=== PATIENT | female | born 1935 | race Caucasian/White ===

== ENCOUNTER 2017-12-02 08:50 | Day surgery (SDC) | payer OTHER ==
--- NOTE | 2017-11-27 15:46 | EKG ---
Test Date: 2017-11-27 Test Time: 15:15:01 Hardness Tester: LENNY MEASUREMENT RESULTS: Intervals: Rate: 54 WA: 168 QRSD: 92 QT: 436 QTc: 413 [place]: P: -8 WA: 168 QRS: -1 T: 30 INTERPRETIVE STATEMENTS: Sinus bradycardia with premature atrial complexes Nonspecific ST and T wave abnormality Abnormal ECG Compared to ECG 06/07/2006 17:55:23 Atrial premature complex(es) now present ST (T wave) deviation now present Sinus rhythm no longer present Electronically Signed On 11-27-17 15:45:58 CDT by Jos Reed
[2017-11-27 15:52] LABS: Absolute Lymphocytes (CBC) 3.4 K/uL (0.7-4.9); Absolute Monocytes 0.5 K/uL (0.1-1.3); Absolute Neutrophil 4.9 K/uL (1.8-8.0); Eosinophils % 2.8 % (0-4.4); Hematocrit 40.4 % (36.0-45.0); Lymphocytes % 37.2 % (15.3-44.8); MCH 29.8 pg (27.0-35.0); MCV 91.3 fL (80-100); MPV 9.3 fL (7.6-11.3); Monocytes % 5.4 % (3.3-12.3); RBC Red Blood Cell Count 4.43 M/uL (3.86-4.86)
--- NOTE | 2017-11-27 16:05 | RAD REPORT ---
EXAM DESCRIPTION: RAD - Chest Pa And Lat (2 Views) - 11/27/2017 3:29 pm CLINICAL HISTORY: Preop chest, pending cholecystectomy COMPARISON: None. TECHNIQUE: PA and lateral views of the chest were obtained. FINDINGS: The lungs are fibrotic. Prominent pericardial fat pads are present. No focal infiltrate, m ass or failure finding. A few small granulomatous nodules are present in the lung frazier. Heart siz e is normal and central vasculature is within normal limits. No pleural effusion or pneumothorax see n. No acute bony finding noted. No aortic abnormality. IMPRESSION: Fibrotic lung frazier and small granulomas. No suspicious cardiopulmonary finding.
[2017-11-27 16:06] LABS: Potassium 4.4 mEq/L (3.6-5.0)
[2017-11-27 16:11] LABS: Bilirubin Direct 0.1 mg/dL (0-0.2); Bilirubin Total 0.5 mg/dL (0.3-1.2); Protein, Total 7.5 g/dL (6.0-8.3)
[~2017-12-02 08:50] MED LIST: CEFAZOLIN/SWI 1gm 1 GM/10 ML SYR IVP SCH; CEFOXITIN/SWI 1gm 1 GM/10 ML SYR IVP SCH
[2017-12-02] MEDS ORDERED: BUPIVACAINE 0.5% Inj,MDV 50 mL VIAL ONE (09:03)
[2017-12-02] MEDS ORDERED: CEFOXITIN/SWI 1gm 1 GM/10 ML SYR ONE (09:34)
[2017-12-02] MEDS ORDERED: Ringers Lactate 1,000 ML IV ONE (09:34)
[2017-12-02] MEDS ORDERED: PROPOFOL 200 MG/20 ML VIAL IV ONE (09:39)
[2017-12-02] MEDS ORDERED: FENTANYL CITR 100 MCG/2 ML ONE (09:39)
[2017-12-02] MEDS ORDERED: ROCURONIUM 50 MG/5 ML VIAL IV ONE (09:40)
[2017-12-02] MEDS ORDERED: EPHEDRINE SULF 50 MG/5 ML SYR ONE (10:23)
[2017-12-02] MEDS ORDERED: NS 0.9% VIAL 10 ML ONE (10:24)
[2017-12-02] MEDS ORDERED: NEOSTIGMINE 1 MG/ML -5 ML SYRINGE ONE (10:32)
[2017-12-02] MEDS ORDERED: GLYCOPYRROLATE 0.2 MG/ML SYR ONE ×2 (10:32→12:20)
[2017-12-02] MEDS: MEPERIDINE HCL 25 MG/0.5 ML ONE ×2 (11:13→11:25)
--- NOTE | 2017-12-02 11:21 | OP ---
Date of Procedure: 12/02/2017 Surgeon: Enmanuel Huber MD Metal Dealer: JULIO Ross Preoperative Diagnosis: Symptomatic cholelithiasis. Postoperative Diagnosis: Symptomatic cholelithiasis. Procedure: Laparoscopic cholecystectomy. Estimated Blood Loss: Minimal. Specimen: Gallbladder. Findings: As above. Anesthesia: General. Complications: None. Disposition: The patient tolerated the procedure in stable condition and taken to the Recovery in go od general condition. Procedure In Detail: The patient was brought to the OR and placed in supine position. General anest hesia was begun. The patient was prepped and draped in usual sterile fashion. Marcaine 0.5% was inf iltrated locally. A 15-blade was used to make a 1 cm supraumbilical midline incision. Subcutaneous tissue was divided. Fascia was identified and divided. A #1 Vicryl stay suture was placed. Periton eal cavity was entered with blunt dissection. A 12-mm trocar was placed into the peritoneal cavity u nder direct vision. Pneumoperitoneum was established. Then, three 5-mm trocars placed under direct vision; 1 in the epigastrium just to the right of midline and 2 in the right subcostal region. Lapar oscopy revealed chronic inflammation of the gallbladder. Fundus retracted superiorly. Infundibulum identified and retracted inferolaterally. Cystic duct and cystic artery were clearly identified with blunt dissection. Clips placed. Both structures were divided. Cautery was used to remove the gall bladder from the liver bed. Bleeding in the liver bed was controlled with cautery. The gallbladder was retrieved through the umbilicus via an EndoCatch bag. Right upper quadrant was examined. No barbara dence of bleeding or bile leakage appreciated. Subsequently, all trocars were removed under direct v ision. Stay sutures were tied to each other across the fascial defect. Subcutaneous wounds were irr igated. Bleeding controlled with cautery. A 3-0 chromic used for subcutaneous tissue and mary alice us ed to close skin. Sterile dressing was applied. The patient was awakened and taken to Recovery in g ood general condition. Discharge Note: The patient will go to Day Surgery and home when stable. Disposition: Home. Condition: Stable. Discharge Instructions: Resume home medications and diet. Activity as tolerated. No heavy lifting. Remove outer dressing in 2 days. Shower. Keep wound clean and dry. Follow up in my office in a mary beth toth. Call for appointment. Tylenol No. 3 one tablet p.o. q.4 p.r.n. pain. KADIE/MARY ANN Voice ID: [id number] Report ID: [id number]
[2017-12-02] MEDS ORDERED: MEPERIDINE HCL 25 MG/0.5 ML ONE (11:49)
[2017-12-02] MEDS ORDERED: ONDANSETRON 4 MG/2 ML VIAL ONE (12:18)
[2017-12-02] MEDS ORDERED: SUCCINYLCHOLINE 20 MG/ML (10 ML) IV ONE (12:49)
== END 2017-12-02 13:40 | disposition home or self-care (01) ==
LOC: OR 08:50
PROVIDERS: ATTEND Surgery
PROC: 0FT44ZZ Resection of Gallbladder, Percutaneous Endoscopic Approach (ICD-10-PCS; principal; 2017-12-02 10:00)
DX: K80.20 Calculus of gallbladder without cholecystitis without obstruction (principal); I10 Essential (primary) hypertension; Z88.2 Allergy status to sulfonamides; Z80.3 Family history of malignant neoplasm of breast; Z83.3 Family history of diabetes mellitus
CPT/HCPCS: 36415; 47562; 71046; 80048; 80076; 82150; 85025; 88304; 93005; J0330; J2175 ×2; J2405; J2710; J3010

== ENCOUNTER 2021-12-19 14:52 | Observation (INO) | payer OTHER ==
--- OUTSIDE RECORDS SUMMARY | 2021-12-19 16:38 | XMS REPORT | Continuity of Care Document ---
:1935 Author Organization [facility] t Address [address] [place] [address] Care Team Providers Name Role Phone [place] Attending Clinician Unavailable Jasvir CARY, A Attending Clinician JASVIR, Natehn Attending Clinician Unavailable Only, Test Attending Clinician Unavailable Doctor Unassigned, Name Attending Clinician Unavailable Pob, Lab Main Attending Clinician Unavailable Jasvir CARY, A Admitting Clinician Nathen LUND Admitting Clinician Unavailable Payers Payer Name Policy Type Policy Number Effective Date Expiration Date S ource Problems Condition Condition Condition Status Onset Resolution Last Treating Co mments Source Name Details Category Date Date Treatment Clinician Date Obesity Obesity Disease Active 2015-07 Univers (BMI (BMI 1-30 ity of 30-39.9) 30-39.9) 00:00: [address] Allergies, Adverse Reactions, Alerts Allergy Allergy Status Severity Reaction(s) Onset Inactive Treating Comm ents Source Name Type Date Date Clinician NO KNOWN Drug Active Univers ALLERGIE Class ity of S [facility] Social History Social Habit Start Date Stop Date Quantity Comments Source Sex Assigned At Universit y of [facility] Exposure to Not sure [facility] SARS-CoV-2 [facility] (event) Branch Tobacco use and 2020-02-03 2020-02-03 Never used Universit y of exposure 00:00:00 00:00:00 [facility] Alcohol intake 2020-02-03 2020-02-03 Current University 00:00:00 00:00:00 non-drinker of [facility] alcohol Branch (finding) Smoking Status Start Date Stop Date Source Never smoker [facility] Medications Ordered Filled Start Stop Current Ordering Indication Dosage Frequency Signature Comments Components Source Medication Medication Date Date Medication? Clinician (SIG) Name Name nebivolol Yes 10mg Take 10 mg Un cory (BYSTOLIC) 8-05 by mouth ity o f 10 mg 19:38: daily. [place] tablet 51 Medical Branch simvastatin 2020-0 Yes 20mg Take 20 mg Univers (ZOCOR) 20 8-05 by mouth ity o f mg tablet 19:38: at [place] 51 bedtime. Medical Branch amlodipine- 2020-0 Yes 1{tbl} Take 1 Tab Univers valsartan 8-05 by mouth ity of (EXFORGE) 19:38: daily. [place] 5-160 mg 51 Medical per tablet Branch allopurinol 2020-0 Yes 150mg Take 150 U nivers (ZYLOPRIM) 8-05 mg by ity of 300 mg 19:38: mouth [place] tablet 51 daily. Medical Branch ASPIRIN LOW 2020-0 Yes 81mg Take 81 mg Univers DOSE ORAL 8-05 by mouth ity of 19:38: daily. [place] 51 Medical Branch CLEMASTINE 2020-0 Yes 1{tbl} Take 1 Uni vers FUMARATE 8-05 tablet by ity of (ANTIHISTAM 19:38: [place] INE 12HR 51 needed. Medical ORAL) Branch metoprolol 2020-0 Yes 50mg Take 50 mg U nivers succinate 8-05 by mouth ity of XL (TOPROL 19:38: daily. [place] XL) 50 mg 51 Medical 24 hr Branch tablet valsartan 2020-0 Yes 80mg Take 80 mg Un cory 80 mg 8-05 by mouth 2 ity of tablet 19:38: (two) [place] 51 times Medical daily. Branch rivaroxaban 2020-0 Yes 15mg Take 15 mg Univers (XARELTO) 8-05 by mouth 2 ity of 15 mg 19:38: (two) [place] tablet 51 times Medical daily. Branch lactated 2020-0 Yes 1000mL at 75 Univer s ringers IV 8-05 mL/hr, ity of infusion 18:15: 1,000 [place], [place] 1[place]000 [place] 00 IV Medical Infusion, Branch CONTINUOUS , Starting Sat02/03/20 at 1315, Until Discontinu ed, Routine, PACU eye block 2020-0 Yes PRN, Univers syringe 11 8-05 Starting ity o f mL 17:34: 02/03/20 [place] 00 at 1234, Medical Until Branch Discontinu ed, Intra-op mydriatic 2020-0 2020- No .5mL 0.5 mL, Univ ers #5 8-05 08-05 Left Eye, ity of ophthalmic 16:15: 15:14 ONCE, 1 Aleksandr as solution 00 :00 dose, Wed Medica l 0.5 mL 02/03/20 at Branch syringe 1115, Routine, DSU Pre-op EPINEPHrine 2020-0 Yes PRN, Univer s 1:1,000 (1 02-02 Starting ity o f mg/mL) 15:32: 02/03/20 [place] (ADRENALIN) 00 at 1032, Medi wero injection Until Branch Discontinu ed, Routine, Intra-op lactated 2020-0 2020- No 1000mL at 20 [facility] rs ringers IV 02-02 08-05 mL/hr, ity of infusion 15:15: 15:13 1,000 mL, Aleksandr as 1,000 mL 00 :00 IV Medical Infusion, Branch ONCE, 1 dose, Sat02/03/20 at 1015, Routine, DSU Pre-op neomycin-po 2020-0 Yes PRN, Univer s lymyxin-dex 02-02 Starting ity of amethasone 14:57: Sat02/03/20 [place] (MAXITROL) 00 at 0957, Medic al 3.5 Until Branch mg/g-10,000 Discontinu unit/g-0.1 ed, % Routine, ophthalmic Intra-op ointment Hyaluronida 2020-0 Yes PRN, Univer s se, Human 02-02 Starting ity of Recomb. 14:57: 02/03/20 [place] (HYLENEX) 00 at 0957, Medica l injection Until Branch Discontinu ed, Routine, Intra-op gentamicin 2020-0 Yes PRN, Univers injection 02-02 Starting ity of 14:57: 02/03/20 [place] 00 at 0957, Medical Until Branch Discontinu ed, ARNAUD, Intra-op DUOVISC 2020-0 Yes PRN, Univers (DUOVISC 02-02 Starting ity of VISCO 14:57: Sat02/03/20 [place] ELASTIC) 3 00 at 0957, Medic al %-4 %(0.5 Until Branch mL) 1 % Discontinu (0.55 mL) ed, intraocular Routine, injection Intra-op dexamethaso 2020-0 Yes PRN, Univer s ne 02-02 Starting ity of (DECADRON 14:56: Sat02/03/20 [place] PHOSPHATE) 00 at 0956, Medic al injection Until Branch Discontinu ed, Routine, Intra-op ceFAZolin 2020-0 Yes PRN, Univers (ANCEF) 8-05 Starting ity of injection 14:56: 02/03/[place] 00 at 0956, Medical Until Branch Discontinu ed, ARNAUD, Intra-op carbachoL 2020-0 Yes PRN, Univers (MIOSTAT) 8 Starting ity of 0.01 % 14:56: 02/03/20 [place] intraocular 00 at 0956, Medi wero injection Until Branch Discontinu ed, Routine, Intra-op balanced 2020-0 Yes PRN, Univers salt irrig 8 Starting ity o f soln comb1 14:56: 02/03/20 [place] (BSS PLUS) 00 at 0956, Medic al ophthalmic Until Branch solution Discontinu 500 mL bag ed, Routine, Intra-op water for 2020-0 Yes PRN, Univers irrigation 8 Starting ity o f irrigation 14:45: 02/03/20 [place] solution 00 at 0945, Medical Until Branch Discontinu ed, Routine, Intra-op metoprolol 2020-0 Yes 50mg Take 50 mg U nivers succinate 8-03 by mouth ity of XL (TOPROL 15:17: daily. [place] XL) 50 mg 03 Medical 24 hr Branch tablet valsartan 2020-0 Yes 80mg Take 80 mg Un cory 80 mg 8-03 by mouth 2 ity of tablet 15:17: (two) [place] 03 times Medical daily. Branch rivaroxaban 2020-0 Yes 15mg Take 15 mg Univers (XARELTO) 8-03 by mouth 2 ity of 15 mg 15:17: (two) [place] tablet 03 times Medical daily. Branch metoprolol 2020-0 Yes 50mg Take 50 mg U nivers succinate 8-03 by mouth ity of XL (TOPROL 15:17: daily. [place] XL) 50 mg 03 Medical 24 hr Branch tablet valsartan 2020-0 Yes 80mg Take 80 mg Un cory 80 mg 8-03 by mouth 2 ity of tablet 15:17: (two) [place] 03 times Medical daily. Branch rivaroxaban 2020-0 Yes 15mg Take 15 mg Univers (XARELTO) 8-03 by mouth 2 ity of 15 mg 15:17: (two) [place] tablet 03 times Medical daily. Branch nebivolol 2020-0 Yes 10mg Take 10 mg Un cory (BYSTOLIC) 8-03 by mouth ity o f 10 mg 15:15: daily. [place] tablet 08 Medical Branch simvastatin 2020-0 Yes 20mg Take 20 mg Univers (ZOCOR) 20 8-03 by mouth ity o f mg tablet 15:15: at [place] 08 bedtime. Medical Branch amlodipine- 2020-0 Yes 1{tbl} Take 1 Tab Univers valsartan 8-03 by mouth ity of (EXFORGE) 15:15: daily. [place] 5-160 mg 08 Medical per tablet Branch allopurinol 2020-0 Yes 150mg Take 150 U nivers (ZYLOPRIM) 8-03 mg by ity of 300 mg 15:15: mouth [place] tablet 08 daily. Medical Branch ASPIRIN LOW 2020-0 Yes 81mg Take 81 mg Univers DOSE ORAL 8-03 by mouth ity of 15:15: daily. [place] [id number] Medical Branch CLEMASTINE 2020-0 Yes 1{tbl} Take 1 Uni vers FUMARATE 8-03 tablet by ity of (ANTIHISTAM 15:15: [place] IN[place] 12HR 08 needed. Medical ORAL) Branch nebivolol 2020-0 Yes 10mg Take 10 mg Un cory (BYSTOLIC) 8-03 by mouth ity o f 10 mg 15:15: daily. [place] tablet 08 Medical Branch simvastatin 2020-0 Yes 20mg Take 20 mg Univers (ZOCOR) 20 8-03 by mouth ity o f mg tablet 15:15: at [place] 08 bedtime. Medical Branch amlodipine- 2020-0 Yes 1{tbl} Take 1 Tab Univers valsartan 8-03 by mouth ity of (EXFORGE) 15:15: daily. [place] 5-160 mg 08 Medical per tablet Branch allopurinol 2020-0 Yes 150mg Take 150 U nivers (ZYLOPRIM) 8-03 mg by ity of 300 mg 15:15: mouth [place] tablet 08 daily. Medical Branch ASPIRIN LOW 2020-0 Yes 81mg Take 81 mg Univers DOSE ORAL 8-03 by mouth ity of 15:15: daily. [place] 08 Medical Branch CLEMASTINE 2020-0 Yes 1{tbl} Take 1 Uni vers FUMARATE 8-03 tablet by ity of (ANTIHISTAM 15:15: mouth [place] IN[place] 12HR 08 needed. Medical ORAL) Branch amlodipine- 2015-07 Yes 1{tbl} Take 1 Tab Univers valsartan 1-30 by mouth ity of (EXFORGE) 17:14: daily. [place] 5-160 mg 18 Medical per tablet Branch allopurinol 2015-07 Yes 150mg Take 150 U nivers (ZYLOPRIM) 1-30 mg by ity of 300 mg 17:14: mouth [place] tablet 18 daily. Medical Branch ASPIRIN LOW 2015-07 Yes 81mg Take 81 mg Univers DOSE ORAL 1-30 by mouth ity of 17:14: daily. [place] 18 Medical Branch CLEMASTINE 2015-07 Yes 1{tbl} Take 1 Uni vers FUMARATE 1-30 tablet by ity of (ANTIHISTAM 17:14: mouth [place] IN[place] 12HR 18 needed. Medical ORAL) Branch nebivolol 2015-07 Yes 10mg Take 10 mg Un cory (BYSTOLIC) 1-30 by mouth ity o f 10 mg 17:14: daily. [place] [facility] 18 Medical Branch simvastatin 2015-07 Yes 20mg Take 20 mg Univers (ZOCOR) 20 1-30 by mouth ity o f mg tablet 17:14: at [place] 18 bedtime. Medical Branch methylPREDN Yes 84mg Take 21 Uni vers ISolone 2-10 Tabs by ity of (MEDROL, 00:00: mouth [place] VASQUEZ,) 4 mg 00 SEE-INSTRU Med ical tablets CTIONS. Branch follow package directions methylPREDN Yes 84mg Take 21 Uni vers ISolone 2-10 Tabs by ity of (MEDROL, 00:00: mouth [place] VASQUEZ,) 4 mg 00 SEE-INSTRU Med ical tablets CTIONS. Branch follow package directions methylPREDN Yes 84mg Take 21 Uni vers ISolone 2-10 Tabs by ity of (MEDROL, 00:00: mouth [place] VASQUEZ,) 4 mg 00 SEE-INSTRU Med ical tablets CTIONS. Branch follow package directions methylPREDN 0 Yes 84mg Take 21 Uni vers ISolone 2-10 Tabs by ity of (MEDROL, 00:00: mouth [place] VASQUEZ,) 4 mg 00 SEE-INSTRU Med ical tablets CTIONS. Branch follow package directions Vital Signs Vital Name Observation Time Observation Value Comments Source Systolic blood 2020-02-03 18:10:00 129 mm[Hg] Univer sity of pressure [facility] Diastolic blood 2020-02-03 18:10:00 90 mm[Hg] Unive rsity of pressure [facility] Oxygen saturation in 2020-02-03 18:10:00 94 /min [facility] Arterial blood by [facility] Pulse oximetry Branch Heart rate 2020-02-03 17:55:00 80 /min [facility] Body temperature 2020-02-03 14:45:00 37.22 [facility] Res[facility] rate 2020-02-03 14:45:00 17 /min [facility] Body height 2020-02-01 15:00:00 177.8 cm [facility] Body weight 2020-02-01 15:00:00 99.791 kg [facility] BMI 2020-02-01 15:00:00 31.57 kg/m2 [facility] Procedures Procedure Date / Time Performing Clinician Source Performed ASSIGNMENT OF BENEFITS 2020-02-02 15:44:01 Doctor Unazulemaigned, [facility] [place] [facility] NOTICE OF BILLING 2020-01-29 17:46:40 Doctor Iram, [facility] PRACTICES FOR MEDICARE [place] [facility] PATIENTS [facility] PATIENT FINANCIAL 2020-01-29 17:46:16 Doctor Unatona, [facility] POLICY [place] [facility] NO SHOW OR MISSED 2020-01-29 17:45:53 Doctor Iram, [facility] APPOINTMENT POLICY [place] [facility] ACKNOWLEDGEMENT CONSENT/REFUSAL FOR 2020-01-29 17:45:24 Doctor Iram [facility] DIAGNOSIS AND TREATMENT [place] [facility] CONSENT/REFUSAL FOR 2020-01-29 17:45:06 [facility] DIAGNOSIS AND TREATMENT [place] [facility] ASSIGNMENT OF BENEFITS 2020-01-29 17:44:45 [facility] [place] [facility] PHYSICIAN ORDERS 2020-01-29 05:01:00 Doctor Iram, [facility] [facility] Encounters Start End Encounter Admission Attending Care Care Encounter Source Date/Time Date/Time Type Type Clinicians Facility Department ID 2021-11-03 2021-11-03 Outpatient [facility] [id number] [place] 00:00:00 00:00:00 [place] [address] 2020-02-03 2020-02-03 Hospital Jasvir [facility] [id number] Univers 09:40:00 13:25:00 Encounter Geovany Matthew [id number] [id number] [id number] [facility] [address] [place] 2020-02-03 2020-02-03 [facility] [id number] Univers 09:40:00 09:40:00 GEOVANY ity of [facility] 2020-02-02 2020-02-02 Laboratory Only, Adc Test [facility] [id number] Univers 10:45:22 11:00:22 Only JasvirGeovany [id number] 0 [id number] [id number] [facility] [address] [place] 2020-02-02 2020-02-02 Outpatient R [facility] [id number] Univers 10:45:00 10:45:00 [id number] ity of [facility] 2020-02-02 2020-02-02 Outpatient R [facility] [id number] Univers 10:45:00 10:45:00 ity of [facility] 2020-02-02 2020-02-02 Orders Doctor GABINO [id number] Univers 00:00:00 00:00:00 Only Unassigned, SHERITA [id number] ity of [place] [facility] [id number] Aleksandr as [id number] [facility] 009 Branch 2020-01-29 2020-01-29 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 16:00:00 16:00:00 GEOVANY [id number] [facility] Results This patient has no known results.
[2021-12-19 18:05] VITALS: BMI 24.5
[2021-12-19] MEDS ORDERED: DIGOXIN 0.25 MG/ML AMP IV ONE (19:00)
[2021-12-19 19:03] LABS: Absolute Lymphocytes (CBC) 2.2 K/uL (0.7-4.9); Hematocrit 42.1 % (36.0-45.0); Lymphocytes % 24.7 % (15.3-44.8); MPV 9.7 fL (7.6-11.3); RBC Red Blood Cell Count 4.48 M/uL (3.86-4.86)
[2021-12-19 19:16] LABS: Magnesium 2.5 mg/dL (1.8-2.4); Potassium 4.3 mmol/L (3.5-5.1)
--- NOTE | 2021-12-19 20:19 | RAD REPORT ---
EXAM DESCRIPTION: RAD - Chest Pa And Lat (2 Views) - 12/19/2021 7:33 pm CLINICAL HISTORY: afib COMPARISON: Chest Pa And Lat (2 Views) dated 11/27/2017 FINDINGS: Lines: None. Lungs: No evidence of edema or pneumonia. Pleural: No significant pleural effusions or pneumothorax. Cardiac: Similar size and configuration Bones: No acute fractures. Other: IMPRESSION: No acute cardiopulmonary disease.
[2021-12-19] MEDS: APIXABAN 2.5 MG TABLET PO SCH (21:00)
[2021-12-19] MEDS ORDERED: AMIODARONE HCL 200 MG TAB PO SCH (21:00)
[2021-12-19 21:40] LABS: Albumin 3.7 g/dL (3.4-5.0); Bilirubin Direct 0.2 mg/dL (0-0.2); Bilirubin Total 0.8 mg/dL (0.2-1.0); Protein, Total 7.7 g/dL (6.4-8.2)
[2021-12-19 21:47] LABS: Thyroid Stimulating Hormone 4.64 uIU/mL (0.360-3.740)
[2021-12-20 04:06] VITALS: O2SAT 99
--- NOTE | 2021-12-20 06:42 | HP ---
Date of Admission: 12/19/2021 Reason For Admission: Atrial fibrillation with rapid ventricular rate. Chief Complaint: Shortness of breath. History Of Present Illness: This is an 85-year-old very pleasant female patient who recently started seeing me and has longstanding history of atrial fibrillation, I have seen her today for her routine followup visit and I have been making adjustment on her metoprolol and current dose of metoprolol is now 75 mg 2 times a day, to try to control her rapid heart rate with atrial fibrillation problem. S he is also taking Eliquis in the past. She was only taking 2.5 mg once a day, but I have instructed her to take it 2 times a day, and she reports that she has been taking Eliquis and metoprolol as pres cribed. When she came in to see me today, she reported that she feels like she is having shortness o f breath with walking without any exertion or strenuous activity. No paroxysmal nocturnal dyspnea or orthopnea. Her heart rate today was 150 per minute and rhythm was irregularly irregular. Her blood pressure at office was 113/76 and heart rate was 150 and with that, decision was made to admit her [facility] for further evaluation and management of this atrial fibrillation with rapid ventricular r ate. Allergies: TO SULFA CAUSING RASH. Medications: Allopurinol 300 mg daily, Eliquis 2.5 mg 2 times a day, hydrochlorothiazide 12.5 mg ivy ly as needed for leg swelling, metoprolol tartrate 25 mg takes 3 tablets 2 times a day, and simvastat in 20 mg daily in the evening. Review of Systems: Respiratory: As mentioned above. Cardiovascular: As mentioned above. All other systems reviewed and negative. Past Medical History: Significant for type 2 diabetes mellitus; hypertension; hyperlipidemia; chroni c atrial fibrillation; renal cyst; chronic kidney disease, stage 3B; cervical spondylosis; lumbar spo ndylosis; lumbar spinal stenosis; gout; and vitamin D deficiency. Past Surgical History: Tonsillectomy, cholecystectomy, appendectomy, hysterectomy, knee surgery, rem oval of basal cell carcinoma from nose. Family History: Father , had heart disease. Mother , had diabetes. Sister has colon cancer . Social History: Negative for smoking and alcohol use. Immunization History: Patient had her COVID-19 vaccine, first dose August 06, 2020, second dose Aug ru2020, third dose February 17, 2021. Physical Examination: VITAL SIGNS: At the time of admission to the hospital, temperature 97.2, initial pulse rate was varinder rded 123, respiratory rate 18, blood pressure 102/78, height 5 feet 10 inches, weight 171 pounds. General: Awake, alert, oriented, not in distress. HEENT: Head atraumatic, normocephalic. Conjunctivae nonerythematous. Sclerae white. Mouth, no thr ush or edema noted. Ears/Nose, no mass, lesion, discharge noted. Neck: Supple. No JVD, lymph nodes, bruit, thyromegaly noted. Lungs: Bilateral good equal air entry. Clear to auscultation. No rhonchi. No rales. Heart: Normal heart sounds, no murmur or gallop. Abdomen: Soft, bowel sounds normal. No guarding, rigidity, tenderness, mass, hepatosplenomegaly, dis tention, or bruit noted. Extremities: No leg edema. No calf tenderness. Skin: No rash, ulcer, cellulitis. Lymphatics: No lymph node enlargement in neck, supraclavicular, infraclavicular region. Neuro: No focal neurological deficit. Chest: Unremarkable. External Genitalia: Deferred. Rectal: Deferred. Laboratory Data: White count 8.9, hemoglobin 13.8, platelets 205. Sodium 138, potassium 4.3, chlori de 105, bicarb 26, BUN 31, creatinine 1.85, glucose 150. Liver function tests unremarkable. COVID-1 9 test negative. Chest x-ray, no acute cardiopulmonary changes. Magnesium 2.5. TSH 4.64. Impression: 1.Atrial fibrillation with rapid ventricular rate. 2.Chronic kidney disease, stage 3B. 3.Hypertension. 4.Hyperlipidemia. 5.Type 2 diabetes mellitus. 6.Osteoarthritis at multiple sites. 7.Hypothyroidism. Plan: We will go ahead and admit her to hospital for further evaluation and management of this probl em. The patient is appropriate for inpatient and is expected to spend two midnights in hospital. We will go ahead and give one dose of digoxin IV 0.25 mg per order and considering her renal insufficie ncy, we will not use sotalol. We will go ahead and try amiodarone per order. We will consult Cardio logy and get echo with Doppler tomorrow morning. Continue Eliquis per order. We will continue allop urinol and simvastatin for gout and hyperlipidemia problem. We will not give metoprolol at this poin t. Details and plan of treatment discussed with her. I will see her tomorrow morning for followup. Consult Cardiology. BONIFACIO/MODL Voice ID: [id number]
[2021-12-20] MEDS: AMIODARONE HCL 200 MG TAB PO SCH ×2 (08:40→19:32)
[2021-12-20] MEDS: APIXABAN 2.5 MG TABLET PO SCH (08:40)
--- NOTE | 2021-12-20 14:24 | ECHO ---
HEIGHT: 5 ft 10 in WEIGHT: 171 lb 0 oz DATE OF STUDY: 12/20/[address]: Heath Guerrero MD 2-DIMENSIONAL: YES M.MODE: YES DOPPLER: YES COLOR FLOW: YES TDS: PORTABLE: YES DEFINITY: BUBBLE STUDY: DIAGNOSIS: ATRIAL FIBRILLATION CARDIAC HISTORY: CATHERIZATION: SURGERY: PROSTHETIC VALVE: PACEMAKER: MEASUREMENTS (cm) DIASTOLIC (NORMALS) SYSTOLIC (NORMALS) IVSd 1.1 (0.6-1.2) LA Diam 4.2 (1.9-4.0) LVEF 61% LVIDd 4.6 (3.5-5.7) LVIDs 3.1 (2.0-3.5) %FS 33% LVPWd 1.2 (0.6-1.2) Ao Diam 3.3 (2.0-3.7) 2 DIMENSIONAL ASSESSMENT: RIGHT ATRIUM: NORMAL LEFT ATRIUM: DILATED RIGHT VENTRICLE: NORMAL LEFT VENTRICLE: NORMAL TRICUSPID VALVE: NORMAL MITRAL VALVE: NORMAL PULMONIC VALVE: NORMAL AORTIC VALVE: NORMAL PERICARDIAL EFFUSION: NONE AORTIC ROOT: NORMAL LEFT VENTRICULAR WALL MOTION: NORMAL DOPPLER/COLOR FLOW: MILD AORTIC, MITRAL AND TRICUSPID REGURGITATION. COMMENTS: MILD AORTIC, MITRAL AND TRICUSPID REGURGITATION. NORMAL LEFT VENTRICULAR EJECTION FRACTION AND SIZE. NO WALL MOTION ABNORMALITY. LEFT ATRIAL ENLARGEMENT. TECHNOLOGIST: LYDIA STOCKTON
[2021-12-20 16:28] VITALS: BP 130/68; TEMP 97.4
--- NOTE | 2021-12-21 14:00 | CON ---
Date of Consultation: 12/20/2021 Reason For Consultation: Atrial fibrillation. History Of Present Illness: Ms. Alberto is an 85-year-old woman, who has had a long history of atria l fibrillation. She was seen by Dr. Guerrero and was admitted for atrial fibrillation because of rapid v entricular response. She was taking metoprolol 75 twice a day as well as Eliquis, but she was only t aking 2.5 once a day. She was having some shortness of breath with and without exertion. Her heart rate was 150. She had adequate blood pressure. She was brought to the hospital for further evaluati on and treatment. Allergies: SHE IS ALLERGIC TO SULFA, WHICH CAUSES A RASH. Social History: Negative. Family History: Negative. Review of Systems: Noncontributory. Medications: At home include allopurinol, Eliquis, hydrochlorothiazide, metoprolol, simvastatin. Physical Examination: Vital Signs: When I saw her were stable. Her heart rate was 70. She remained in atrial fibrillatio n. Her blood pressure was 111/59. HEENT: Negative. Neck: Supple with no bruit. Chest: Clear. Cardiac: Revealed atrial fibrillation. Abdomen: Benign. Extremities: Revealed no clubbing, cyanosis, or edema. Diagnostic Data: EKG showed AFib. Creatinine is 1.85. Her TSH was 4.64. COVID negative. Impression And Plan: Atrial fibrillation. The patient was given digoxin, Eliquis, amiodarone 400 mg b.i.d. Echocardiogram which was done revealed a normal ejection fraction. Her left atrium was mild ly dilated, but she did not have any thrombus. She has a normal ejection fraction, mild aortic and m itral regurgitation, normal wall motion. Atrial fibrillation, rate controlled on amiodarone. I will continue Eliquis. Continue amiodarone. No need for cardioversion. Asymptomatic now. Can go home whenever it is okay with Dr. Guerrero. BOUBACAR/MARY ANN Voice ID: [id number] Report ID: [id number]
--- NOTE | 2021-12-23 17:39 | EKG ---
Test Date: 2021-12-20 Test Time: 09:21:14 Product Support Rep: TELLY MEASUREMENT RESULTS: Intervals: Rate: 78 GA: QRSD: 92 QT: 364 QTc: 414 [place]: P: GA: QRS: 35 T: 61 INTERPRETIVE STATEMENTS: Atrial fibrillation Nonspecific T wave abnormality, probably digitalis effect Abnormal ECG Compared to ECG 11/27/2017 15:15:01 T-wave abnormality now present Sinus bradycardia no longer present Atrial premature complex(es) no longer present ST (T wave) deviation no longer present Electronically Signed On 12-23-21 17:32:23 CDT by Jeffrey Chin
== END 2021-12-20 20:04 | disposition home or self-care (01) ==
LOC: 2ND 16:35 → INTOOBSV 16:35
PROVIDERS: ADMIT Internal Medicine; ATTEND Internal Medicine
DX: I48.19 Other persistent atrial fibrillation (principal); I12.9 Hypertensive chronic kidney disease with stage 1 through stage 4 chronic kidney disease, or unspecified chronic kidney disease; E11.22 Type 2 diabetes mellitus with diabetic chronic kidney disease; N18.32 Chronic kidney disease, stage 3b; I35.1 Nonrheumatic aortic (valve) insufficiency; I34.0 Nonrheumatic mitral (valve) insufficiency; E78.5 Hyperlipidemia, unspecified; E03.9 Hypothyroidism, unspecified; M15.9 Polyosteoarthritis, unspecified; M47.812 Spondylosis without myelopathy or radiculopathy, cervical region; M47.816 Spondylosis without myelopathy or radiculopathy, lumbar region; M48.061 Spinal stenosis, lumbar region without neurogenic claudication; M10.9 Gout, unspecified; E55.9 Vitamin D deficiency, unspecified; Z79.01 Long term (current) use of anticoagulants; Z79.899 Other long term (current) drug therapy; Z88.2 Allergy status to sulfonamides; Z85.828 Personal history of other malignant neoplasm of skin; Z90.49 Acquired absence of other specified parts of digestive tract; Z90.710 Acquired absence of both cervix and uterus; Z20.822 Contact with and (suspected) exposure to COVID-19; Z82.49 Family history of ischemic heart disease and other diseases of the circulatory system; Z80.0 Family history of malignant neoplasm of digestive organs; Z83.3 Family history of diabetes mellitus
CPT/HCPCS: 93005; 93306; 85025; 80048; 36415; 83735; 80076; 84443; 84439; 71046; U0003; J1160; G0378 ×3